=== PATIENT | male | born 1940 | race Caucasian/White ===

== ENCOUNTER 2016-06-15 19:58 | Inpatient (IN) | payer MEDICARE, OTHER ==
[2016-06-15 21:39] LABS: % BASOPHILS 0.8 % (0.0-2.0); % EOSINOPHILS 6.5 % (0.0-5.0); % LYMPHOCYTES 26.1 % (20.0-50.0); % NEUTROPHILS 59.6 % (40.0-80.0); HEMATOCRIT 34.8 % (39.0-49.0); HEMOGLOBIN 11.8 gm/dL (12.6-17.4); MEAN CORPUSCULAR HEMOGLOBIN 30.6 pg (27.0-31.0); MEAN PLATELET VOLUME 7.5 fl; NEUTROPHILE ABSOLUTE 3.3 Th/cmm (1.8-8.0); PLATELET COUNT 167 Th/cmm (150-400); RED BLOOD COUNT 3.86 Mil/cmm (3.80-5.80); RED CELL DISTRIBUTION WIDTH 13.3 % (11.5-20.0); WHITE BLOOD COUNT 5.6 Th/cmm (4.8-10.8)
--- NOTE | 2016-06-15 21:45 | ED Physician Chart ---
Chief Complaint/HPI - Patient Information Date Seen:: 06/15/16 Time Seen:: 21:37 Chief Complaint:: COMBATIVE History of Present Illness:: THIS IS A 75 YO MALE SENT FROM FOR AN EVALUATION AND TREATMENT BECAUSE HE IS COMBATIVE NOT TAKING HIS MEDS AND NO FOLLOWING THE TREATMENT CARE. HE HAS A HISTORY OF SEIZURES, COPD,HYPERTENSION AND DEPRESSION. HE DENIES CHEST PAIN, HEADACHE AND ABDOMINAL PAIN. Allergies:: Allergies Allergy/AdvReac Type Severity Reaction Status Date / Time No Known Allergies Allergy Verified 06/15/16 21:08 Vitals:: Vital Signs - 8 hr 06/15/16 20:30 Temp 98.8 F HR 70 RR 18 BP 140/74 O2 Sat % 98 Historian:: Patient, EMS, Medical Records Review:: Nurse's Note Reviewed Review of Systems - Review of Systems General/Constitutional: No fever, No chills, No weight loss, No weakness, No diaphoresis, No edema, No loss of appetite, Other (PATIENT IS UNCOOPERATIVE AND A REVIEW OF SYSTEMS WAS NOT OBTAINABLE.) Skin: No skin lesions, No rash, No bruising Head: No headache, No light-headedness Eyes: No loss of vision, No pain, No diplopia ENT: No earache, No nasal drainage, No sore throat, No tinnitus Neck: No neck pain, No swelling, No thyromegaly, No stiffness, No mass noted Cardio Vascular: No chest pain, No palpitations, No PND, No orthopnea, No edema Pulmonary: No SOB, No cough, No sputum, No wheezing GI: No nausea, No vomiting, No diarrhea, No pain, No melena, No hematochezia, No constipation, No hematemesis G/U: No dysuria, No frequency, No hematuria Musculoskeletal: No bone or joint pain, No back pain, No muscle pain Endocrine: No polyuria, No polydipsia Psychiatric: No prior psych history, No depression, No anxiety, No suicidal ideation Hematopoietic: No bruising, No lymphadenopathy Allergic/Immuno: No urticaria, No angioedema Neurological: No syncope, No focal symptoms, No weakness, No paresthesia, No headache, No seizure, No dizziness, No confusion, No vertigo Past Medical History - Past Medical History Obtainable: Yes Past Medical History: HTN, Asthma/COPD, Dyslipidemia, Seizures, Dementia Family History: None Social History: Non Smoker, No Alcohol, No Drug Use, Care Facility Surgical History: other (UNKNOWN AT THIS TIME) Family Medical History - Family Member Mother History Unknown: Yes Physical Exam - Physical Examination General/Constitutional: Awake, Well-developed, well-nourished, Alert, No distress, GCS 15, Non-toxic appearing, Ambulatory Other Gen/Cons comments:: VERY UNCOOPERATIVE Head: Atraumatic Eyes: Lids, conjuctiva normal, PERRL, EOMI Skin: Nl inspection, No rash, No skin lesions, No ecchymosis, Well hydrated, No lymphadenopathy ENMT: External ears, nose nl, Nasal exam nl, Lips, teeth, gums nl Other ENMT comments:: RIGHT FACE CONTUSION AND A SMALL HEMATOMA NOTED UNDER THE RIGHT ORBIT AREA. Neck: Nontender, Full ROM w/o pain, No JVD, No nuchal rigidity, No bruit, No mass, No stridor Respiratory: Nl effort/Exclusion, Clear to Auscultation, No Wheeze/Rhonchi/Rales Cardio Vascular: RRR, No murmur, gallop, rubs, NL S1 S2 GI: No tenderness/rebounding/guarding, No organomegaly, No hernia, Normal BS's, Nondistended, No mass/bruits, No McBurney tenderness : No CVA tenderness Extremities: No tenderness or effusion, Full ROM, normal strength in all extremities, No edema, Normal digits & nails Neuro/Psych: Alert/oriented, DTR's symmetric, Normal sensory exam, Normal motor strength, Judgement/insight normal (COMBATIVE AND UNCOOPERATIVE), Mood normal, Normal gait, No focal deficits Misc: normal gait, Normal back, No paraspinal tenderness Labs/Radiology/EKG Results - Lab Results Results: Abnormal Lab Results 06/15/16 06/15/16 06/15/16 21:29 21:29 21:29 WBC 5.6 RBC 3.86 Hgb 11.8 L Hct 34.8 L MCV 90.0 MCH 30.6 MCHC Differential 34.0 RDW 13.3 Plt Count 167 MPV 7.5 Neutrophils % 59.6 Lymphocytes % 26.1 Monocytes % 7.0 Eosinophils % 6.5 H Basophils % 0.8 PT 10.4 INR 1.00 PTT (Actin FS) 26.1 Sodium Potassium Chloride Carbon Dioxide Anion Gap BUN Creatinine Est GFR ( Amer) Est GFR (Non-Af Amer) BUN/Creatinine Ratio Glucose Calcium Total Bilirubin AST ALT Alkaline Phosphatase Troponin I Total Protein Albumin Globulin Albumin/Globulin Ratio Triglycerides 156 H Cholesterol 117 LDL Cholesterol Direct 76 HDL Cholesterol 27 Urine Source Urine Color Urine Clarity Urine pH Ur Specific [place] Urine Protein Urine Glucose (UA) Urine Ketones Urine Blood Urine Nitrate Urine Bilirubin Urine Urobilinogen Ur Leukocyte Esterase Urine RBC Urine WBC Ur Epithelial Cells Urine Bacteria 06/15/16 06/15/16 06/15/16 21:29 21:29 22:15 WBC RBC Hgb Hct MCV MCH MCHC Differential RDW Plt Count MPV Neutrophils % Lymphocytes % Monocytes % Eosinophils % Basophils % PT INR PTT (Actin FS) Sodium 134 L Potassium 3.7 Chloride 108 H Carbon Dioxide 23.4 Anion Gap 6.3 L BUN 24 Creatinine 1.0 Est GFR ( Amer) TNP Est GFR (Non-Af Amer) TNP BUN/Creatinine Ratio 24.0 Glucose 106 H Calcium 9.3 Total Bilirubin 0.3 AST 19 ALT 12 Alkaline Phosphatase 86 Troponin I 0.03 Total Protein 6.5 Albumin 3.6 L Globulin 2.9 Albumin/Globulin Ratio 1.2 Triglycerides Cholesterol LDL Cholesterol Direct HDL Cholesterol Urine Source CLEAN C Urine Color YELLOW Urine Clarity CLEAR Urine pH 6.0 Ur Specific [place] 1.025 Urine Protein NEGATIVE Urine Glucose (UA) 250 H Urine Ketones TRACE Urine Blood NEGATIVE Urine Nitrate NEGATIVE Urine Bilirubin NEGATIVE Urine Urobilinogen 0.2 Ur Leukocyte Esterase NEGATIVE Urine RBC 0-2 H Urine WBC 0-2 Ur Epithelial Cells OCCASIONAL Urine Bacteria OCCASIONAL - Radiology Results Results: chest x-ray = nad, no cardiomegaly, no fx seen, normal lung volumes. - EKG Interpretations EKG Time:: 21:21 Rhythm: sinus [place]: left Rate: 67 Comments:: the qrs complex is wide in all leads except v5 and v6. there are no pvcs or pacs ED Septic Shock - . Is Septic Shock (SBP<90, OR Lactate>4 mmol\L) present?: No - <6hrs of presentation: Vital Signs: Vital Signs - 8 hr 06/15/16 20:30 Temp 98.8 F HR 70 RR 18 BP 140/74 O2 Sat % 98 Reassessment (Disposition) - Reassessment Reassessment Condition:: Unchanged - Diagnosis Diagnosis:: psychosis - Patient Disposition Discharge/Transfer:: Acute Care w/in this hosp Admitting Medical Physician:: Cruz Sheikh Admitting Psych Physician:: Elke Reynoso Condition at Disposition:: Unchanged
[2016-06-15 21:52] LABS: PROTHROMBIN TIME (TEST) 10.4 SECONDS (9.5-11.5)
[2016-06-15 21:55] LABS: ALB/GLOB RATIO 1.2 (1.0-1.8); ALKALINE PHOSPHATASE 86 U/L (34-104); ANION GAP 6.3 (7.0-16.0); BILIRUBIN,TOTAL 0.3 mg/dL (0.3-1.0); BUN - UREA NITROGEN 24 mg/dL (7-25); CALCIUM SERUM 9.3 mg/dL (8.6-10.3); CARBON DIOXIDE 23.4 mEq/L (21.0-31.0); CHLORIDE 108 mEq/L (98-107); GLUCOSE 106 mg/dL (70-105); POTASSIUM SERUM 3.7 mEq/L (3.5-5.1); SGOT 19 U/L (13-39); SGPT/ALT 12 U/L (7-52); SODIUM SERUM 134 mEq/L (136-145)
[2016-06-15 21:56] LABS: CHOLESTEROL 117 mg/dL (<200); TRIGLYCERIDES 156 mg/dL (<150)
[2016-06-15] MEDS ORDERED: Lactated Ringer 1,000 ML IV ONE (22:05)
[2016-06-15 23:05] LABS: URINE BILIRUBIN NEGATIVE (NEGATIVE); URINE COLOR YELLOW; URINE GLUCOSE (UA) 250 mg/dL (NEGATIVE)
[2016-06-15 23:06] LABS: URINE BLOOD NEGATIVE (NEGATIVE); URINE KETONE TRACE mg/dL (NEGATIVE); URINE PROTEIN NEGATIVE (NEGATIVE); URINE RBC 0-2 /hpf (0-5); URINE UROBILINOGEN 0.2 E.U./dL (0.2 - 1.0); URINE WBC 0-2 /hpf (0-5)
[2016-06-15 23:07] LABS: URINE BACTERIA OCCASIONAL /hpf (NONE SEEN); URINE EPITHELIAL CELLS OCCASIONAL /lpf (FEW)
[2016-06-16] MEDS ORDERED: Maalox 30 mL Cup PO PRN (00:07)
[2016-06-16] MEDS ORDERED: Magnesium Hydroxide (MOM) 30 mL UDC PO PRN (00:07)
[2016-06-16 01:26] VITALS: BP 114/68
--- NOTE | 2016-06-16 09:28 | Diagnostic Imaging Report ---
Portable chest x-ray : Pain The heart size is generous with left ventricular prominence. Tortuosity of the thoracic aorta. No acute focal pulmonary processes. IMPRESSION: 1. No acute pulmonary processes
[2016-06-16] MEDS: Multivitamin Tab PO SCH (09:34)
[2016-06-16] MEDS: Pantoprazole 40 mg EC Tab PO SCH (09:34)
--- NOTE | 2016-06-16 13:37 | Psychosocial Evaluation ---
PSYCHIATRIC EVALUATION/EXAMINATION IDENTIFYING DATA: The patient is a 75-year-old male, admitted here from [facility]. Information obtained by directly interviewing the patient as well as reviewing the admission papers since arrival. JUSTIFICATION FOR HOSPITALIZATION: The patient is reported to have been at [facility] and is being treated over there for depression and anxiety, and the patient has been referred over here for stabilization in view of his acute depression. At the time of the hospitalization, the patient has been on Paxil and Remeron, and the patient is being followed up by Dr. Reynaga on an outpatient basis. However, during the interview, the patient is getting easily agitated and the patient has not been able to provide much of information. The patient's gait is noted to be very unsteady and the patient has been advised to use the wheelchair rather than walking around and the patient had been followed up by Dr. Reynaga on an outpatient basis at [facility] in [place]. PAST PSYCHIATRIC HISTORY: Please refer to the above medical history. PHYSICAL EXAMINATION: Requested to be done by Dr. Sheikh. SUBSTANCE ABUSE HISTORY: None. PHYSICAL OR SEXUAL ABUSE HISTORY: None. LEGAL PROBLEMS: None at this time. STRENGTH AND ASSETS: The patient is motivated. MENTAL STATUS EXAMINATION: The patient is a 75-year-old, looking his stated age, thin built, superficially cooperative. Eye contact is poor. Mood is noted to be depressed. Affect is constricted. Insight and judgment at this time are noted to be very much impaired. Impulse control seems to be poor. The patient is feeling frustrated and the patient is stating that he cannot figure it out why he has to feel so low. Now, the patient is not presenting with any suicidal plans. The patient denies any auditory hallucinations. No delusions are noted. The patient's short- and long-term memory noted to be impaired. Attention span and concentration are noted to be poor at this time. DIAGNOSTIC IMPRESSION: 1. Major depressive disorder, recurrent and moderate. 2. Dementia. PLAN: To continue the patient with the 15 mg of the mirtazapine and 20 mg of the Paxil and follow the patient with supportive therapy. Once stabilized, the patient is going to be discharged to the family for followup on outpatient basis. [facility]# [id number]
--- NOTE | 2016-06-16 16:38 | Consultation ---
INTERNAL MEDICINE CONSULTATION HISTORY OF PRESENT ILLNESS: The patient is a 75-year-old male with past medical history significant for COPD, hypertension, seizure disorder, hyperlipidemia, history of CVA, peptic ____ gastritis, arthritis. The patient also fell down recently and has a laceration of the right frontal area and right periorbital hematoma. SOCIAL HISTORY: No documented smoking or alcohol abuse. FAMILY HISTORY: Not available. REVIEW OF SYSTEMS: The patient has no obvious shortness of breath. Minimal cough. No nausea, no vomiting, unstable gait. PHYSICAL EXAMINATION: GENERAL: Elderly male in obvious respiratory distress. VITAL SIGNS: Include a blood pressure 140/80, heart rate 80, respiration rate of 18. SKIN: Showed right ____ supraorbital laceration as well as right periorbital hematoma. NECK: Supple. LUNGS: Show occasional rhonchi, occasional crepitation, no bronchial breathing. HEART: S1 and S2 present. ABDOMEN: Soft, minimal epigastric tenderness. Bowel sounds are good. EXTREMITIES: Show arthritis. NEUROLOGIC: The patient had no obvious focal motor deficits. LABORATORY DATA: Include white count 5.6, hemoglobin 11.8, hematocrit 34.8, platelet count of 167. Sodium 134, potassium 3.7, chloride 108, bicarbonate 23.4, BUN 24, creatinine of 1, glucose of 106. MEDICAL DIAGNOSES: Include chronic obstructive pulmonary disease, hypertension, seizure disorder, hyperlipidemia, history of cerebrovascular accident, peptic ____, gastritis, arthritis. So far, right periorbital hematoma and right supraorbital laceration and anemia. CURRENT MEDICATIONS: Include Tylenol, Maalox, Norvasc, Tenormin, Lipitor, Keppra, Ativan, and Protonix. Thank you Dr. Reynoso for letting me see your patient. JOB# [id number]
[2016-06-16] MEDS: Atorvastatin Calcium 10 MG TAB PO SCH (17:06)
[2016-06-17] MEDS: Pantoprazole 40 mg EC Tab PO SCH (09:34)
[2016-06-17] MEDS: Multivitamin Tab PO SCH (09:34)
[2016-06-17] MEDS: Atorvastatin Calcium 10 MG TAB PO SCH (17:06)
--- NOTE | 2016-06-18 04:32 | Progress Notes ---
PSYCHIATRIC PROGRESS NOTE TIME PATIENT SEEN: 6:45 a.m. SUBJECTIVE: Staff was spoken to. The patient is interviewed. Mood is noted to be irritable. Affect is constricted. The patient is getting easily agitated. The patient has been having difficult time to cope with the stress. The patient's gait is noted to be still unsteady. The patient is very depressed and feels frustrated. The patient is currently on Paxil 20 mg in the morning and also getting mirtazapine 15 mg at bedtime. The patient is reporting that he has not been able to sleep last night. ASSESSMENT: The patient is still depressed. PLAN: To continue the patient with supportive therapy. I encouraged the patient to verbalize the concerns rather than to act out. The patient is not ready to be discharged to a lower level of care yet. JOB# [id number]
[2016-06-18] MEDS: Pantoprazole 40 mg EC Tab PO SCH (08:54)
[2016-06-18] MEDS: Multivitamin Tab PO SCH (08:54)
[2016-06-18] MEDS: Atorvastatin Calcium 10 MG TAB PO SCH (16:35)
--- NOTE | 2016-06-19 02:06 | Progress Notes ---
PSYCHIATRIC PROGRESS NOTE TIME PATIENT SEEN: 10:00 a.m. SUBJECTIVE: Staff was spoken to. The patient is interviewed. Mood is noted to be irritable. Affect is constricted. The patient has been screaming and yelling. The patient has to be given a dose of Ativan to calm him down. The patient at this time is mildly sedated. No side effects to the medications are noted. ASSESSMENT: The patient is still impulsive. PLAN: To continue the patient with supportive therapy and continue the current medications and follow up. JOB# [id number]
[2016-06-19] MEDS: Multivitamin Tab PO SCH (08:55)
[2016-06-19] MEDS: Pantoprazole 40 mg EC Tab PO SCH (08:55)
[2016-06-19] MEDS: Atorvastatin Calcium 10 MG TAB PO SCH (16:04)
--- NOTE | 2016-06-19 23:59 | Progress Notes ---
TIME PATIENT SEEN: 10:00 a.m. SUBJECTIVE: Staff was spoken to. The patient is interviewed. Mood is noted to be irritable. Affect is constricted. The patient is having a tendency to scream and yell. The patient could be redirectable today. No side effects to medications are noted. The patient was out of control and has to be given a dose of Ativan yesterday. ASSESSMENT: The patient is still agitated. PLAN: To continue the patient with supportive therapy and follow up. JOB# [id number]
[2016-06-20] MEDS: Pantoprazole 40 mg EC Tab PO SCH (09:09)
[2016-06-20] MEDS: Multivitamin Tab PO SCH (09:09)
[2016-06-20] MEDS: Atorvastatin Calcium 10 MG TAB PO SCH (16:48)
--- NOTE | 2016-06-21 03:32 | Progress Notes ---
PSYCHIATRIC PROGRESS NOTE TIME PATIENT SEEN: 11:30 a.m. SUBJECTIVE: Staff was spoken to. The patient is interviewed. Mood is noted to be depressed. Affect is constricted. Coping skills are noted to be poor. The patient is still isolative and withdrawn. No side effects to the medications are noted. The patient is currently on Paxil and Remeron and he is able to tolerate the medications. The patient is still not able to contract for safety and hence he is not ready to be discharged to a lower level of care. ASSESSMENT: The patient is still depressed. PLAN: To continue the patient with the supportive therapy and follow up. JOB# [id number]
[2016-06-21] MEDS: Pantoprazole 40 mg EC Tab PO SCH (09:48)
[2016-06-21] MEDS: Multivitamin Tab PO SCH (09:48)
[2016-06-21] MEDS: Atorvastatin Calcium 10 MG TAB PO SCH (16:27)
--- NOTE | 2016-06-21 23:19 | Progress Notes ---
TIME PATIENT SEEN: 1:30 p.m. SUBJECTIVE: Staff was spoken to. The patient is interviewed. Mood is noted to be irritable. Affect is constricted. Insight and judgment are noted to be still impaired. Impulse control seemed to be poor. The patient tends to scream and yell. The patient needs to be redirected. Sleep and appetite are noted to be poor. Appetite is noted to be fair at this time. ASSESSMENT: The patient is still impulsive. PLAN: To continue the patient with the supportive therapy and follow up. JOB# [id number]
[2016-06-22] MEDS: Multivitamin Tab PO SCH (09:37)
[2016-06-22] MEDS: Pantoprazole 40 mg EC Tab PO SCH (09:37)
[2016-06-22] MEDS: Atorvastatin Calcium 10 MG TAB PO SCH (17:34)
--- NOTE | 2016-06-22 22:11 | Progress Notes ---
TIME PATIENT SEEN: 9:45 a.m. SUBJECTIVE: Staff was spoken to. The patient is interviewed. Mood is noted to be depressed. Affect is constricted. The patient is getting easily frustrated. Insight and judgment are noted to be still impaired. Impulse control seems to be limited. No side effects to the medications are noted. The patient is currently on the Remeron and low dose of Paxil and has been able to tolerate the medications. The patient has been redirectable at this time. ASSESSMENT: The patient is still depressed. PLAN: To continue the patient with the current medications and followup. JOB# [id number]
[2016-06-23] MEDS: Pantoprazole 40 mg EC Tab PO SCH (08:29)
[2016-06-23] MEDS: Multivitamin Tab PO SCH (08:29)
[2016-06-23] MEDS: Atorvastatin Calcium 10 MG TAB PO SCH (17:05)
--- NOTE | 2016-06-24 07:33 | Progress Notes ---
PSYCHIATRIC PROGRESS NOTE TIME PATIENT SEEN: 9:45 a.m. SUBJECTIVE: Staff was spoken to. The patient is interviewed. Mood is noted to be depressed. Affect is constricted. Insight and judgment are noted to be still impaired. Impulse control seems to be limited. The patient is getting easily frustrated. Coping skills at this time are noted to be very poor. No side effects to the medications are noted. Sleep and appetite are noted to be improving. ASSESSMENT: The patient is still impulsive. PLAN: To continue the patient with the current medications. I encouraged the patient to verbalize the concerns rather than to act out. The patient is not ready to be discharged to a lower level of care yet because of the impulsivity and depression. [facility]# [id number]
[2016-06-24] MEDS: Multivitamin Tab PO SCH (09:44)
[2016-06-24] MEDS: Pantoprazole 40 mg EC Tab PO SCH (09:44)
[2016-06-24] MEDS ORDERED: Haloperidol Lactate 5 mg/mL 1mL Vial IM STA (14:44)
[2016-06-24] MEDS ORDERED: Haloperidol Lactate 5 mg/mL 1mL Vial ONE (14:48)
[2016-06-24] MEDS: Atorvastatin Calcium 10 MG TAB PO SCH (16:39)
--- NOTE | 2016-06-25 04:30 | Progress Notes ---
PSYCHIATRIC PROGRESS NOTE TIME PATIENT SEEN: 5:00 p.m. SUBJECTIVE: Staff was spoken to. The patient is interviewed. Mood is noted to be irritable. Affect is constricted. Insight and judgment are noted to be still impaired. Impulse control seems to be limited. The patient is screaming and yelling and has been getting out of control. The patient could not be contained and the staff have been ordered to give Haldol if the patient is about to act out. The patient could not be contained with the lower dose of the lorazepam. The patient is currently on Paxil 20 mg and mirtazapine 15 mg at bedtime. The patient is still feeling depressed and is becoming more irritable and angry. PLAN: To continue the patient with the current medications and in view of his aggressive behavior and the patient is going to be at a lower dose of the Seroquel at night time that is 12.5 mg and the patient is going to be closely monitored. I encouraged him to participate in the groups and verbalize the concerns. When I am talking to him, the patient is getting easily paranoid and has been not able to give accurate information. ASSESSMENT: The patient is still depressed and presenting with paranoia. PLAN: Add the 12.5 mg of the Seroquel and follow the patient up. The patient is not ready to be discharged to a lower level of care in view of his impulsive behavior. JOB# [id number]
[2016-06-25] MEDS: Multivitamin Tab PO SCH (08:47)
[2016-06-25] MEDS: Pantoprazole 40 mg EC Tab PO SCH (08:49)
[2016-06-25] MEDS: Atorvastatin Calcium 10 MG TAB PO SCH (16:12)
--- NOTE | 2016-06-26 05:40 | Progress Notes ---
TIME PATIENT SEEN: 6 p.m. SUBJECTIVE: Staff was spoken to. The patient is interviewed. Mood is noted to be irritable. Affect is constricted. Insight and judgment are noted to be still impaired. Impulse control seems to be fair coping skills are also noted to be poor. The patient has been having difficult time to cope with the stress. The patient has no insight into his illness. The patient has to be given a dose of the Ativan because of his out of control behavior. ASSESSMENT: The patient is still grossly psychotic. PLAN: To continue the patient with the supportive therapy. I encouraged the patient to verbalize the concerns rather than to act out. JOB# [id number]
[2016-06-26] MEDS: Pantoprazole 40 mg EC Tab PO SCH (08:49)
[2016-06-26] MEDS: Multivitamin Tab PO SCH (08:49)
[2016-06-26] MEDS: Atorvastatin Calcium 10 MG TAB PO SCH (17:14)
--- NOTE | 2016-06-27 01:39 | Progress Notes ---
TIME PATIENT SEEN: 10:00 a.m. SUBJECTIVE: Staff was spoken to. The patient is interviewed. Mood is noted to be less irritable today. Insight and judgment are noted to be still impaired. Impulse control seems to be poor. The patient is currently on 25 mg of Seroquel at bedtime and Paxil has been decreased to 10 mg. The patient is still continuing on the Remeron. No side effects to the medications are noted. The patient tends to scream and yell and the patient has to be given a dose of medication ____. ASSESSMENT: The patient is still impulsive. PLAN: To continue the patient with the current medications and follow up. JOB# [id number]
[2016-06-27] MEDS: Pantoprazole 40 mg EC Tab PO SCH (09:21)
[2016-06-27] MEDS: Multivitamin Tab PO SCH (09:21)
[2016-06-27] MEDS: Atorvastatin Calcium 10 MG TAB PO SCH (17:20)
--- NOTE | 2016-06-28 03:27 | Progress Notes ---
PSYCHIATRIC PROGRESS NOTE TIME PATIENT SEEN: 9:30 a.m. SUBJECTIVE: Staff was spoken to. The patient is interviewed. Mood is noted to be less irritable today. The patient has been lying down in the bed. Coping skills are noted to be still poor. The patient's impulsive behavior has been a major concern. No screaming and yelling is noted this morning. The patient has been able to tolerate the medication. The patient's sleep is reported to be poor. Appetite is reported to be improving. The patient has been able to tolerate the mirtazapine 15 mg at bedtime and Seroquel 25 mg at bedtime. Paxil is being changed to 10 mg. Possibly, Paxil is going to be discontinued by tomorrow. ASSESSMENT: The patient's impulsivity is coming under control. PLAN: To continue the patient with the supportive therapy. I encouraged the patient to verbalize the concerns rather than to act out. JOB# [id number]
[2016-06-28] MEDS: Multivitamin Tab PO SCH (08:30)
[2016-06-28] MEDS: Pantoprazole 40 mg EC Tab PO SCH (08:30)
[2016-06-28] MEDS: Atorvastatin Calcium 10 MG TAB PO SCH (17:24)
--- NOTE | 2016-06-29 00:12 | Progress Notes ---
TIME PATIENT SEEN: 12:30 p.m. SUBJECTIVE: Staff was spoken to. The patient is interviewed. Mood is noted to be irritable. Affect is constricted. The patient has been screaming and yelling and needs to be redirected. The patient was almost ____able to give in a shot, but the patient then calmed down. The patient has no insight into his illness. The patient has for one reason or the other ____gets easily upset and the patient has been placed on the Seroquel, which he was given at 25 mg at bedtime. PLAN: To increase the dose to 25 mg twice a day and follow the patient with the supportive therapy. JOB# [id number]
[2016-06-29] MEDS: Pantoprazole 40 mg EC Tab PO SCH (09:46)
[2016-06-29] MEDS: Triple Antibiotic 0.94 gm Pkt TP SCH (09:46)
[2016-06-29] MEDS: Multivitamin Tab PO SCH (09:46)
[2016-06-29] MEDS: Atorvastatin Calcium 10 MG TAB PO SCH (17:27)
--- NOTE | 2016-06-30 07:18 | Progress Notes ---
DATE: 06/29/2016 TIME PATIENT SEEN: 5:00 p.m. SUBJECTIVE: Staff was spoken to. The patient is interviewed. Mood is noted to be irritable. Affect is constricted. Insight and judgment are noted to be still impaired. The patient is still testing the limits. Coping skills are noted to be poor. The patient has been having difficult time to cope with the stress. No side effects to the medications are noted. The patient is able to tolerate the antipsychotic medication. ASSESSMENT: The patient is still impulsive. PLAN: To continue the patient with current medications and follow up. JOB# [id number]
[2016-06-30] MEDS: Pantoprazole 40 mg EC Tab PO SCH (10:44)
[2016-06-30] MEDS: Triple Antibiotic 0.94 gm Pkt TP SCH ×2 (10:45→10:46)
[2016-06-30] MEDS: Multivitamin Tab PO SCH (10:45)
--- NOTE | 2016-06-30 23:40 | Progress Notes ---
DATE: 06/30/2016 TIME PATIENT SEEN: 10:00 a.m. SUBJECTIVE: Staff was spoken to. The patient is interviewed. Mood is noted to be anxious. Insight and judgment noted to be improving. Impulse control is noted to be fair. The patient is reported to have 1 or 2 episodes of diarrhea and the patient has been given the Imodium and the patient is doing fairly well. ASSESSMENT: The patient is stabilizing. PLAN: To discharge the patient to [facility] for further followup by Dr. Marquez and Dr. Sheikh. JOB# [id number]
--- NOTE | 2016-07-15 22:16 | Discharge Summary ---
DATE OF DISCHARGE: 06/30/2016 IDENTIFYING DATA: The patient is a 75-year-old male admitted from [facility] on a voluntary basis in view of his acute anxiety and depression. CHIEF COMPLAINT: "I'm anxious." HISTORY OF PRESENT ILLNESS: Please refer to the 06/16/2016 dictation done by me. DIAGNOSES AT THE TIME OF ADMISSION: 1A: Major depressive disorder, recurrent and moderate. 1B: Dementia and behavioral changes, secondary to it. SECONDARY DIAGNOSIS: None. MEDICAL DIAGNOSIS: As per Dr. Cruz Sheikh. HOSPITAL COURSE AND RESPONSE TO TREATMENT: Physical examination was done by Dr. Sheikh and is noted to be significant for COPD, hypertension, seizure disorder, and hyperlipidemia, history of CVA, peptic ulcer disease, right periorbital hematoma, and right supraorbital laceration. HOSPITAL COURSE AND RESPONSE TO TREATMENT: The patient has been closely monitored on the inpatient unit, provided with supportive psychotherapy. The patient has been continued on Paxil and Remeron. The patient has been encouraged to comply with the treatment and participate in the groups. The patient has been continued on Namenda 28 mg and mirtazapine 30 mg at bedtime. Paroxetine is given 20 mg. With these medications, the patient was observed and was noted to be doing fairly well and the patient has been added 25 mg of the Seroquel at bedtime, which was gradually increased to twice a day and with these medications, the patient started to do fairly well and hence was discharged to be followed up on an outpatient basis. MENTAL STATUS EXAMINATION: At the time of discharge, the patient's mood is noted to be anxious. Affect is appropriate, not suicidal or homicidal. Coping skills are noted to be fair. Sleep and appetite are also noted to be fair. No side effects to the medications are noted at the time of the discharge. DIAGNOSES AT THE TIME OF DISCHARGE: 1A. Major depressive disorder, recurrent and moderate. 1B. Dementia and behavioral change, secondary to it. AFTERCARE PLAN: The patient is discharged to [facility] to be followed up on an outpatient basis. PROGNOSIS: At the time of discharge noted to be fair with the treatment. [facility]# [id number]
== END 2016-06-30 15:20 | DRG 884 ==
LOC: ER 19:58 → GERO 23:15
PROVIDERS: ADMIT Psychiatry & Neurology Psychiatry; ATTEND Psychiatry & Neurology Psychiatry
DX: F03.90 Unspecified dementia, unspecified severity, without behavioral disturbance, psychotic disturbance, mood disturbance, and anxiety (principal); J44.9 Chronic obstructive pulmonary disease, unspecified; F33.1 Major depressive disorder, recurrent, moderate; D64.9 Anemia, unspecified; G40.909 Epilepsy, unspecified, not intractable, without status epilepticus; I10 Essential (primary) hypertension; E78.5 Hyperlipidemia, unspecified; F29 Unspecified psychosis not due to a substance or known physiological condition; M19.90 Unspecified osteoarthritis, unspecified site; K29.70 Gastritis, unspecified, without bleeding; K27.9 Peptic ulcer, site unspecified, unspecified as acute or chronic, without hemorrhage or perforation; Z86.73 Personal history of transient ischemic attack (TIA), and cerebral infarction without residual deficits
CPT/HCPCS: 36415-UA; 71010-TC; 80053-TC; 80061-TC; 81001-TC; 84484-TC; 85025-TC; 85610-TC; 85730-TC; 86592-TC; 90899; 93005; G0410; J1630; J2060; Z7610